=== PATIENT | female | born 2000 | race Two or more races ===

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

== ENCOUNTER 2020-03-22 19:27 | Emergency (ER) | payer MEDICAID ==
[~2020-03-22] VITALS: Ht 144.8 cm; Wt 73.5 kg
[2020-03-22 19:28] VITALS: BP 118/87
== END 2020-03-22 20:07 | disposition home or self-care (01) ==
LOC: ED 19:55
DX: J00 Acute nasopharyngitis [common cold] (principal); Z20.828 Contact with and (suspected) exposure to other viral communicable diseases; B97.89 Other viral agents as the cause of diseases classified elsewhere; J45.909 Unspecified asthma, uncomplicated
CPT/HCPCS: 87635; 99283